=== PATIENT | female | born 1990 | race Asian ===

== ENCOUNTER → 2020-11-19 01:27 | Outpatient (CLI) | payer OTHER, SELFPAY ==
[2020-11-19 18:53] LABS: SARS-CoV-2 RNA PCR Negative
== END ==
PROVIDERS: Visit Provider Surgery Plastic and Reconstructive Surgery
DX: Z01.812 Encounter for preprocedural laboratory examination (principal); Z20.822 Contact with and (suspected) exposure to COVID-19
CPT/HCPCS: C9803; U0003; U0005

== ENCOUNTER 2020-11-22 01:28 | Day surgery (SDC) | payer OTHER, SELFPAY ==
[2020-11-08 15:15] VITALS: BMI 16.9
[2020-11-22] VITALS (10 sets, daily range): BP systolic 111–127; BP diastolic 74–89; PULSE 79–96; RESP 15–18; TEMP 36.4–36.6; O2SAT 98–100
[2020-11-22] MEDS: LACTATED RINGERS 1,000 ML 30 ML IV CONT (13:05)
--- NOTE | 2020-11-22 14:20 | WPDANESEPPF ---
Anes - Initial Pre Proc Eval Procedure: Operation Date: 11/22/20 14:30 Proposed Procedures p Bilateral Augmentation Mammoplasty - Zoltan Paul MD Date/Time: 11/22/20 14:20 Surgeon: Zoltan Paul MD Pre Op Diagnosis: micromastia Patient Data Age: 30 Gender: F Height: 5 ft Weight: 38.6 kg Last Vital Signs Temp 36.6 C 11/22/20 12:35 Pulse 81 11/22/20 12:35 Resp 16 11/22/20 12:35 BP 111/74 11/22/20 12:35 Pulse Ox 100 11/22/20 12:35 Allergies Allergy/AdvReac Type Severity Reaction Status Date / Time No Known Allergies Allergy Unverified 11/08/20 15:14 Home Medications Medication Instructions Recorded Confirmed Type carisoprodol 350 mg tablet 350 mg PO TID PRN #21 tablet 11/15/20 11/22/20 Rx docusate sodium 100 mg capsule 100 mg PO DAILY #14 cap 11/15/20 11/22/20 Rx ondansetron HCl 4 mg tablet 4 mg PO Q8H #28 tablet 11/15/20 11/22/20 Rx oxycodone-acetaminophen 5 mg-325 1 tablet PO Q6H PRN #15 tablet 11/15/20 11/22/20 Rx mg tablet Patient hx anesthesia problems: none Family hx anesthesia problems: none PMFSH Past Medical History Medical History (Updated 11/22/20 @ 14:20 by Moody Rosales MD) Healthy adult Surgical History Surgical History (Updated 11/22/20 @ 14:20 by Moody Rosales MD) History of appendectomy Family History Family History Father No problems noted. Social History Social History Smoking status: Never smoker Alcohol intake: never Substance use: never Substance use type: does not use Living arrangements: with family Spiritual care concerns: No Anes - Eval Final PreProcedure Day of Procedure 11/22/20 14:20 Patient weight: thin Heart: regular rate and rhythm Lungs: clear to auscultation Airway: Mallampati scale class 1 Neurological: alert and oriented Last oral intake: >/= 8 hours ASA classification: I Emergent: no Anesthetic plan: proceed Anesthesia type and monitoring: general LMA and standard monitoring Informed Consent: The patient's anesthetic plan and its attendant risks and benefits were discussed with the patient/family/POA. Questions were solicited and answers provided to the satisfaction of the patient/family/POA.
--- NOTE | 2020-11-22 14:35 | WPDHPUPDATE1 ---
History and Physical Update Update Date/Time: 11/22/20 14:35 History and Physical has been reviewed, including an updated exam of the patient. There are NO changes in the patient's condition. Risks, benefits, and alternatives have been discussed and questions answered. Patient agrees to proceed with procedure.
--- NOTE | 2020-11-22 14:57 | PM.PROC ---
Procedure Note - Detailed Date of procedure: 11/22/20 Pre-op diagnosis: micromastia Post-op diagnosis: same Procedure performed: Bilateral augmentation mammaplasty Description of procedure: She is here today for bilateral breast augmentation. Previously and again today the risks, benefits, alternatives were discussed in extensive detail. I wanted her to be very realistic about the risks involved as well as expectations. We discussed aftercare and what to monitor for. Made sure answered all of her questions to her satisfaction today and consent was obtained. Marked in the preoperative holding area with their verification. The patient was taken to the operating room placed supine on the operating table. Anesthesia was provided by anesthesiology. A surgical time-out was taken. We cleansed the skin and 1% lidocaine and 0.25% Marcaine with epinephrine was used anesthetize as a field block. She was prepped and draped in a standard sterile fashion. Tegaderm nipple [place] were placed. A 15 blade used to make an incision along the inframammary fold. Dissection was continued at 45 degree angle until the chest wall as identified. I incised the pectoralis major along its inferior border and completely released the inferior border leaving the medial border intact. I created a subpectoral pocket in the appropriate dimensions based on our preoperative planning for the implant. I then copiously irrigated with saline solution and verified a strict hemostasis. Next the use a triple antibiotic and Betadine containing solution to irrigate the pocket. I washed my gloves with the triple antibiotic and Betadine solution. We washed the implant immediately upon opening it with this solution and only opened it when we needed it. I used implant funnel and no-touch technique. The implant was introduced into the pocket using the funnel. Having verified positioning of the implant this was closed using 2-0 Vicryl followed by 3-0 Monocryl in a running subcuticular 4-0 Monocryl followed by tissue glue. Fluffs, Bruce wrap, and surgical bra were placed. Patient was awoke and taken to PACU without difficulty. All instrument sponge counts were correct at the end of the case. Anesthesia: GLMA Surgeon: Zoltan Paul MD Estimated blood loss (mL): 10 Drains: No Packing: No Pathology: none sent Complications: No immediate complications Condition: stable Disposition: PACU Findings: Bilateral dual plane augmentation Nattavaresdelilah Katyira SoftTouch 265 cc Silicone Implants Right: REF [id number] SN [id number] Left: REF F-265 SN [id number]
[2020-11-22] MEDS: ceFAZolin 2 GM/D5W 50 ML 2 GM/50 ML BAG IVPB (15:03)
[2020-11-22] MEDS: LIDO 1%/EPINEPHRINE 1:100,000 50 ML VIAL 20 ML INFILTRATE (15:49)
[2020-11-22] MEDS: fentaNYL CITRATE INJ (*CRX) 100 MCG/2 ML VIAL 25 MCG IV PUSH ×2 (16:33→16:42)
== END 2020-11-22 17:53 | disposition home or self-care (01) ==
PROVIDERS: Visit Provider Surgery Plastic and Reconstructive Surgery
PROC: (CPT 19325; principal; 2020-11-22 14:30)
DX: Z41.1 Encounter for cosmetic surgery (principal); N64.82 Hypoplasia of breast
CPT/HCPCS: 19325; J0690; J1100; J1580; J2250; J2405; J2704; J3010; J7120; L8000